=== PATIENT | male | born 1990 | race Hispanic/Latino ===

== ENCOUNTER 2017-01-15 10:32 | Emergency (ER) | payer OTHER, SELFPAY ==
[~2017-01-15 10:32] MED LIST: Sodium Chloride Irrig Solution 250 ML BOT ONE
[2017-01-15] MEDS ORDERED: Lidocaine 1% 20 ML MDV ONE (10:51)
--- NOTE | 2017-01-15 11:16 | RAD ---
RIGHT TIBIA AND FIBULA TWO VIEWS: History: Patient was mowing the yard earlier today. Possible foreign body in the posterior lower ext remity. Comparison: None. FINDINGS: Two views right tibia and fibula. No fracture. No cortical irregularity of periosteal reaction. No radiopaque foreign body. IMPRESSION: No radiopaque foreign body. POS: [facility]
[2017-01-15] MEDS ORDERED: Triple Antibiotic Oint 1 GM Packet ONE (11:48)
== END 2017-01-15 11:50 | disposition home or self-care (01) ==
LOC: MADERS 10:32
DX: S81.811A Laceration without foreign body, right lower leg, initial encounter (principal); F32.9 Major depressive disorder, single episode, unspecified; F41.9 Anxiety disorder, unspecified; W45.8XXA Other foreign body or object entering through skin, initial encounter
CPT/HCPCS: 12001; J2001

== ENCOUNTER 2018-03-17 20:45 | Emergency (ER) | payer BC, SELFPAY ==
[2018-03-17] MEDS ORDERED: Ibuprofen 800 MG TAB ONE (21:08)
[2018-03-17] MEDS ORDERED: Dexamethasone 4 MG TAB ONE (21:08)
== END 2018-03-17 21:14 | disposition home or self-care (01) ==
LOC: MADERS 20:45
DX: S93.401A Sprain of unspecified ligament of right ankle, initial encounter (principal); F32.9 Major depressive disorder, single episode, unspecified; F41.9 Anxiety disorder, unspecified; F17.210 Nicotine dependence, cigarettes, uncomplicated; W19.XXXA Unspecified fall, initial encounter
CPT/HCPCS: 99283; J8540

== ENCOUNTER 2018-08-09 17:07 | Emergency (ER) | payer BC | END 2018-08-09 18:29 | disposition home or self-care (01) | LOC: MADERS 17:07 | DX: S91.311A Laceration without foreign body, right foot, initial encounter (principal); F41.9 Anxiety disorder, unspecified; F32.9 Major depressive disorder, single episode, unspecified; F17.210 Nicotine dependence, cigarettes, uncomplicated; W26.0XXA Contact with knife, initial encounter | CPT/HCPCS: 12001 ==

== ENCOUNTER 2020-08-14 18:52 | Emergency (ER) | payer BC ==
[2020-08-14] MEDS ORDERED: Ondansetron PF 4 MG/2 ML Vial ONE (19:16)
[2020-08-14 19:31] LABS: #Basophils 0.1 thou/uL (0.0-0.2); #Lymphocytes 2.4 thou/uL (1.20-3.40); #Monocytes 0.7 thou/uL (0.11-0.59); #Neutrophils 6.7 thou/uL (1.40-6.50); %Basophils 0.7 % (0.0-1.0); %Eosinophils 0.4 % (0.0-10.0); %Monocytes 6.6 % (0.0-10.0); %Neutrophils 68.3 % (42.0-75.0); Hemoglobin 15.8 g/dL (14.0-18.0); Mean Corpuscular HGB CONC 32.4 g/dL (32.0-36.0); Mean Corpuscular Hemoglobin 28.3 pg (27.0-31.0); Mean Corpuscular Volume 87.5 fL (78.0-98.0); Mean Platelet Volume 6.4 fL (7.4-10.4); Platelet Count 249 thou/uL (130-400); RBC Distribution Width 11.7 % (11.5-14.5); Red Blood Cell (RBC) Count 5.58 mill/uL (4.70-6.10); White Blood Cell (WBC) Count 9.8 thou/uL (4.8-10.8)
[2020-08-14 19:49] LABS: ALT (SGPT) 22 U/L (8-55); AST (SGOT) 22 U/L (5-34); Albumin 4.6 g/dL (3.5-5.0); Alkaline Phosphatase 53 U/L (40-110); Anion Gap 17 mmol/L (10-20); BUN (Urea Nitrogen) 10 mg/dL (8.9-20.6); Calc. Creatinine Clearance 0 mL/min (70-130); Calcium 9.4 mg/dL (7.8-10.44); Carbon Dioxide 24 mmol/L (22-29); Chloride 102 mmol/L (98-107); Estimated GFR-MDRD Greater than 90; Glucose 121 mg/dL (70-105); Lipase 19 U/L (8-78); Potassium 3.3 mmol/L (3.5-5.1); Protein, Total 7.6 g/dL (6.0-8.3); Sodium 140 mmol/L (136-145)
[2020-08-15 16:34] LABS: SARS-CoV-2 MS2 Positive; SARS-CoV-2 N Gene Negative; SARS-CoV-2 S Gene Negative; SARS-CoV-2 by NAA Not Detected (NotDetected); SARS-CoV-2 orf1ab Negative
== END 2020-08-14 20:12 | disposition home or self-care (01) ==
LOC: MADERS 18:52
DX: K29.70 Gastritis, unspecified, without bleeding (principal); F41.9 Anxiety disorder, unspecified; F32.9 Major depressive disorder, single episode, unspecified; F17.210 Nicotine dependence, cigarettes, uncomplicated
CPT/HCPCS: 80053; 83690; 85025; 87635; 96374; J2405; U0003

== ENCOUNTER 2020-12-25 09:56 | Emergency (ER) | payer SELFPAY ==
[2020-12-25 10:15] LABS: Bilirubin Negative (Negative); Blood, Urine Trace (Negative); Clarity Clear (Clear); Glucose, Urine (Dipstick) Negative (Negative); Ketone, Urine 15 mg/dL (Negative); Leukocyte Negative (Negative); Nitrite Negative (Negative); Protein, Urine (Dipstick) Trace mg/dL (Neg-Trace); Specific Gravity, Urine 1.015 (1.005-1.030); Urobilinogen 0.2 mg/dL (Less than 2); pH, Urine 5.5 (5.0-9.0)
[2020-12-25 10:21] LABS: Bacteria/HPF Rare-Few HPF (None Seen); RBC/HPF 0-3 HPF (0-3); Squamous Epithelial 0-3 HPF (0-3); WBC/HPF 0-3 HPF (0-3)
[2020-12-25 10:22] LABS: Mucous/LPF 1+ LPF (<2+)
[2020-12-25] MEDS ORDERED: Ketorolac Tromethamine 30 MG/ML VIAL ONE (10:32)
[2020-12-25] MEDS ORDERED: Sodium Chloride 0.9% 1,000 ML ONE (10:32)
[2020-12-25] MEDS ORDERED: Ondansetron PF 4 MG/2 ML Vial ONE (10:32)
[2020-12-25 10:50] LABS: #Basophils 0.1 thou/uL (0.0-0.2); #Lymphocytes 1.7 thou/uL (1.20-3.40); #Monocytes 0.6 thou/uL (0.11-0.59); #Neutrophils 5.9 thou/uL (1.40-6.50); %Basophils 0.7 % (0.0-1.0); %Eosinophils 0.4 % (0.0-10.0); %Lymphocytes 20.7 % (21.0-51.0); %Monocytes 6.8 % (0.0-10.0); %Neutrophils 71.4 % (42.0-75.0); Hemoglobin 17.2 g/dL (14.0-18.0); Mean Corpuscular HGB CONC 33.8 g/dL (32.0-36.0); Mean Corpuscular Hemoglobin 29.2 pg (27.0-31.0); Mean Corpuscular Volume 86.4 fL (78.0-98.0); Mean Platelet Volume 6.6 fL (7.4-10.4); Platelet Count 243 thou/uL (130-400); RBC Distribution Width 11.1 % (11.5-14.5); Red Blood Cell (RBC) Count 5.89 mill/uL (4.70-6.10); White Blood Cell (WBC) Count 8.3 thou/uL (4.8-10.8)
--- NOTE | 2020-12-25 11:00 | CT ---
EXAM: CT Abdomen Pelvis WO Con PROVIDED CLINICAL HISTORY: Left flank pain COMPARISON: None FINDINGS: The visualized lung bases are free of significant opacity. There is no evidence for urinary tract calculi or hydronephrosis. The solid abdominal organs are suboptimally evaluated in the absence of IV contrast material but demo nstrate an unremarkable, unenhanced CT appearance. There is no bowel dilatation, inflammatory fat stranding, free fluid or free air apparent. The append ix appears normal. The osseous structures demonstrate no concerning lytic or blastic lesions. IMPRESSION: No evidence for urinary tract calculi or hydronephrosis.
[2020-12-25 11:05] LABS: ALT (SGPT) 25 U/L (8-55); AST (SGOT) 34 U/L (5-34); Albumin 4.8 g/dL (3.5-5.0); Alkaline Phosphatase 52 U/L (40-110); Anion Gap 20 mmol/L (10-20); BUN (Urea Nitrogen) 11 mg/dL (8.9-20.6); Bilirubin, Total 1.4 mg/dL (0.2-1.2); CK (CPK) 581 U/L (30-200); CRP (Inflammatory) Less than 0.50 mg/dL (= or < 0.5); Calc. Creatinine Clearance 0 mL/min (70-130); Calcium 9.3 mg/dL (7.8-10.44); Carbon Dioxide 20 mmol/L (22-29); Chloride 101 mmol/L (98-107); Globulin 3.3 g/dL (2.4-3.5); Glucose 93 mg/dL (70-105); Potassium 3.8 mmol/L (3.5-5.1); Protein, Total 8.1 g/dL (6.0-8.3); Sodium 137 mmol/L (136-145)
== END 2020-12-25 11:30 | disposition home or self-care (01) ==
LOC: MADERS 09:56
DX: B34.9 Viral infection, unspecified (principal); R11.2 Nausea with vomiting, unspecified; F17.210 Nicotine dependence, cigarettes, uncomplicated
CPT/HCPCS: 74176; 80053; 81003; 81015; 82550; 85025; 86140; 96361; 96374; 96375; J1885; J2405; J7050

== ENCOUNTER 2021-04-28 13:32 | Emergency (ER) | payer SELFPAY ==
[2021-04-28] MEDS ORDERED: Metoclopramide HCl 10 MG TAB ONE (14:10)
[2021-04-28 14:14] LABS: #Basophils 0.1 thou/uL (0.0-0.2); #Lymphocytes 1.5 thou/uL (1.20-3.40); #Monocytes 0.4 thou/uL (0.11-0.59); #Neutrophils 6.3 thou/uL (1.40-6.50); %Eosinophils 0.3 % (0.0-10.0); %Lymphocytes 17.8 % (21.0-51.0); %Monocytes 5.2 % (0.0-10.0); %Neutrophils 75.8 % (42.0-75.0); Hemoglobin 15.9 g/dL (14.0-18.0); Mean Corpuscular HGB CONC 31.8 g/dL (32.0-36.0); Mean Corpuscular Hemoglobin 28.8 pg (27.0-31.0); Mean Corpuscular Volume 90.6 fL (78.0-98.0); Mean Platelet Volume 7.2 fL (7.4-10.4); Platelet Count 240 thou/uL (130-400); RBC Distribution Width 12.4 % (11.5-14.5); Red Blood Cell (RBC) Count 5.51 mill/uL (4.70-6.10); White Blood Cell (WBC) Count 8.4 thou/uL (4.8-10.8)
[2021-04-28 14:28] LABS: ALT (SGPT) 19 U/L (8-55); AST (SGOT) 18 U/L (5-34); Albumin 4.7 g/dL (3.5-5.0); Alkaline Phosphatase 46 U/L (40-110); Anion Gap 13 mmol/L (10-20); BUN (Urea Nitrogen) 10 mg/dL (8.9-20.6); Calc. Creatinine Clearance 0 mL/min (70-130); Calcium 9.9 mg/dL (7.8-10.44); Carbon Dioxide 27 mmol/L (22-29); Chloride 104 mmol/L (98-107); Globulin 2.9 g/dL (2.4-3.5); Glucose 122 mg/dL (70-105); Potassium 4.3 mmol/L (3.5-5.1); Protein, Total 7.6 g/dL (6.0-8.3); Sodium 140 mmol/L (136-145)
== END 2021-04-28 15:09 | disposition home or self-care (01) ==
LOC: MADERS 13:32
DX: F12.188 Cannabis abuse with other cannabis-induced disorder (principal); R11.2 Nausea with vomiting, unspecified; R63.0 Anorexia; F17.220 Nicotine dependence, chewing tobacco, uncomplicated
CPT/HCPCS: 80053; 85025; 99284

== ENCOUNTER 2021-11-15 09:38 | Emergency (ER) | payer SELFPAY ==
[2021-11-15] MEDS ORDERED: Bacitracin 1 PK ONE (10:01)
== END 2021-11-15 10:15 | disposition home or self-care (01) ==
LOC: MADERS 09:38
DX: S61.212A Laceration without foreign body of right middle finger without damage to nail, initial encounter (principal); F17.220 Nicotine dependence, chewing tobacco, uncomplicated; W26.8XXA Contact with other sharp object(s), not elsewhere classified, initial encounter
CPT/HCPCS: 99283

== ENCOUNTER 2022-02-22 11:33 | Emergency (ER) | payer SELFPAY ==
[2022-02-22] MEDS ORDERED: predniSONE 20 MG TAB ONE (11:54)
== END 2022-02-22 12:00 | disposition home or self-care (01) ==
LOC: MADERS 11:33
DX: L23.7 Allergic contact dermatitis due to plants, except food (principal); F17.220 Nicotine dependence, chewing tobacco, uncomplicated
CPT/HCPCS: 99282; J7512

== ENCOUNTER 2022-06-13 19:29 | Emergency (ER) | payer OTHER, SELFPAY ==
[~2022-06-13 19:29] MED LIST changes: +NS 0.9% w/ 20 MEQ KCL 1,000 ML BAG ONE; -Sodium Chloride Irrig Solution 250 ML BOT ONE
[2022-06-13 20:22] LABS: #Basophils 0.1 thou/uL (0.0-0.2); #Lymphocytes 2.3 thou/uL (1.20-3.40); #Monocytes 1.4 thou/uL (0.11-0.59); #Neutrophils 11.7 thou/uL (1.40-6.50); %Basophils 0.7 % (0.0-1.0); %Eosinophils 0.1 % (0.0-10.0); %Lymphocytes 14.6 % (21.0-51.0); %Monocytes 9.2 % (0.0-10.0); %Neutrophils 75.5 % (42.0-75.0); Hemoglobin 15.8 g/dL (14.0-18.0); Mean Corpuscular HGB CONC 33.6 g/dL (32.0-36.0); Mean Corpuscular Hemoglobin 29.1 pg (27.0-31.0); Mean Corpuscular Volume 86.7 fL (78.0-98.0); Platelet Count 208 thou/uL (130-400); RBC Distribution Width 11.3 % (11.5-14.5); Red Blood Cell (RBC) Count 5.42 mill/uL (4.70-6.10); White Blood Cell (WBC) Count 15.5 thou/uL (4.8-10.8)
[2022-06-13] MEDS ORDERED: Sodium Chloride 0.9% 1,000 ML ONE ×2 (20:24→21:06)
[2022-06-13] MEDS ORDERED: Ketorolac Tromethamine 30 MG/ML VIAL ONE (20:24)
[2022-06-13 20:42] LABS: ALT (SGPT) 33 U/L (8-55); AST (SGOT) 54 U/L (5-34); Albumin 5.2 g/dL (3.5-5.0); Alkaline Phosphatase 49 U/L (40-110); Anion Gap 21 mmol/L (10-20); BUN (Urea Nitrogen) 25 mg/dL (8.9-20.6); Bilirubin, Total 1.8 mg/dL (0.2-1.2); CK (CPK) 1994 U/L (30-200); Calc. Creatinine Clearance 0 mL/min (70-130); Calcium 10.7 mg/dL (7.8-10.44); Carbon Dioxide 22 mmol/L (22-29); Chloride 92 mmol/L (98-107); Estimated GFR 68; Globulin 3.3 g/dL (2.4-3.5); Glucose 97 mg/dL (70-105); Potassium 3.4 mmol/L (3.5-5.1); Protein, Total 8.5 g/dL (6.0-8.3); Sodium 132 mmol/L (136-145)
[2022-06-13 20:59] LABS: CKMB 5.5 ng/mL (0-6.6)
[2022-06-13] MEDS ORDERED: Potassium Chloride 20 MEQ TAB ONE (21:06)
[2022-06-13] MEDS ORDERED: Aspirin Chewable 81 MG TAB ONE (21:06)
[2022-06-13 21:53] LABS: Bilirubin Negative (Negative); Blood, Urine Trace (Negative); Clarity Clear (Clear); Glucose, Urine (Dipstick) Negative (Negative); Ketone, Urine 15 mg/dL (Negative); Leukocyte Negative (Negative); Nitrite Negative (Negative); Protein, Urine (Dipstick) Negative (Neg-Trace); Urobilinogen 0.2 mg/dL (Less than 2); pH, Urine 5.5 (5.0-9.0)
[2022-06-13 21:56] LABS: RBC/HPF 0-3 HPF (0-3)
[2022-06-13 21:57] LABS: Calcium Oxalate Crystals Rare HPF (None Seen); Squamous Epithelial 0-3 HPF (0-3); WBC/HPF None Seen HPF (0-3)
[2022-06-13 22:05] LABS: Amphetamine Not Detected (NotDetected); Barbiturates Screen Not Detected (NotDetected); Benzodiazepine Screen Not Detected (NotDetected); Cocaine Metabolite Screen Not Detected (NotDetected); Medtox Control Line Valid? VALID (VALID); Methadone Not Detected (NotDetected); Methamphetamine Not Detected (NotDetected); Opiate Screen Not Detected (NotDetected); Oxycodone Screen Not Detected (NotDetected); Phencyclidine (PCP) Not Detected (NotDetected); THC/Cannabinoid Screen Detected (NotDetected); Tricyclic Screen Not Detected (NotDetected)
[2022-06-14 02:39] LABS: Anion Gap 12 mmol/L (10-20)
[2022-06-14 02:44] LABS: BUN (Urea Nitrogen) 19 mg/dL (8.9-20.6); CK (CPK) 1788 U/L (30-200); Calc. Creatinine Clearance 0 mL/min (70-130); Carbon Dioxide 27 mmol/L (22-29); Chloride 105 mmol/L (98-107); Estimated GFR 100; Glucose 90 mg/dL (70-105); Sodium 139 mmol/L (136-145)
[2022-06-14 02:58] LABS: Calcium 9.1 mg/dL (7.8-10.44)
== END 2022-06-14 03:29 | disposition home or self-care (01) ==
LOC: MADERS 19:29
DX: T67.2XXA Heat cramp, initial encounter (principal); E86.9 Volume depletion, unspecified; R07.89 Other chest pain; F17.220 Nicotine dependence, chewing tobacco, uncomplicated; X32.XXXA Exposure to sunlight, initial encounter; Y92.65 Oil rig as the place of occurrence of the external cause
CPT/HCPCS: 36416; 80048; 80053; 80306; 81003; 81015; 82550; 82553; 84443; 84484; 85025; 93005; 94760; 96361; 96365; 96366; 96375; J1885; J3480; J7050

== ENCOUNTER 2024-03-19 08:36 | Emergency (ER) | payer OTHER, SELFPAY | END 2024-03-19 10:05 | disposition home or self-care (01) | LOC: MADERS 08:36 | DX: S92.512A Displaced fracture of proximal phalanx of left lesser toe(s), initial encounter for closed fracture (principal); F17.220 Nicotine dependence, chewing tobacco, uncomplicated; W20.8XXA Other cause of strike by thrown, projected or falling object, initial encounter ==